=== PATIENT | male | born 1980 | race Caucasian/White ===

== ENCOUNTER 2016-06-05 14:28 | Emergency (ER) | payer SELFPAY ==
[~2016-06-05] VITALS: Ht 170.1 cm; Wt 65.8 kg
[~2016-06-05 14:28] MED LIST: ALBUTEROL0.09 MG/A2 IH; ALBUTEROL0.09 MG/AC IH; KEFLEX500 MG PO; MEDROL DOSEPAK4 MG PO; NKHM; PREDNICOT10 MG PO; PREDNICOT20 MG PO; PREDNISONE10 MG PO; PREDNISONE20 MG PO; ROBITUSSIN AC 110 ML PO; VIBRAMYCIN100 MG PO; ZITHROMAX Z PA250 MG PO; ZITHROMAX250 MG PO
[2016-06-05] MEDS ORDERED: CLINDAMYCIN150 MG PO (14:49)
[2016-06-05] MEDS ORDERED: Peridex 473 ML473 ML PO (14:49)
[2016-06-05] MEDS ORDERED: NAPROSYN500 MG PO (14:49)
== END 2016-06-05 14:51 | disposition home or self-care (01) ==
LOC: ED 14:28
DX: K02.9 Dental caries, unspecified (principal); R03.0 Elevated blood-pressure reading, without diagnosis of hypertension; J45.909 Unspecified asthma, uncomplicated; F17.200 Nicotine dependence, unspecified, uncomplicated; Z88.0 Allergy status to penicillin

== ENCOUNTER 2017-04-02 10:58 | Emergency (ER) | payer SELFPAY ==
[~2017-04-02] VITALS: Ht 170.1 cm; Wt 65.8 kg
[~2017-04-02 10:58] MED LIST changes: +CLINDAMYCIN150 MG PO; +NAPROSYN500 MG PO; +Peridex 473 ML473 ML PO
[2017-04-02] MEDS ORDERED: DUONEB 3 MG/3 ML3 M1 INH (11:23)
[2017-04-02] MEDS ORDERED: PREDNISONE10 MG PO (11:23)
[2017-04-02] MEDS ORDERED: CLARITIN10 MG PO (11:23)
[2017-04-02] MEDS ORDERED: ROBITUSSIN DM 105 ML PO (11:23)
== END 2017-04-02 12:34 | disposition home or self-care (01) ==
LOC: ED 10:58
DX: J45.901 Unspecified asthma with (acute) exacerbation (principal); R03.0 Elevated blood-pressure reading, without diagnosis of hypertension; F17.200 Nicotine dependence, unspecified, uncomplicated; Z88.0 Allergy status to penicillin

== ENCOUNTER 2017-05-14 09:31 | Emergency (ER) | payer SELFPAY ==
[~2017-05-14] VITALS: Ht 170.1 cm; Wt 65.8 kg
[~2017-05-14 09:31] MED LIST changes: +CLARITIN10 MG PO; +DUONEB 3 MG/3 ML3 M1 INH; +ROBITUSSIN DM 105 ML PO
[2017-05-14] MEDS ORDERED: PROVENTIL HFA6.7 GM INH (10:48)
[2017-05-14] MEDS ORDERED: PREDNISONE50 MG PO (10:48)
== END 2017-05-14 11:15 | disposition home or self-care (01) ==
LOC: ED 09:31
DX: J20.9 Acute bronchitis, unspecified (principal); J45.901 Unspecified asthma with (acute) exacerbation; F17.200 Nicotine dependence, unspecified, uncomplicated; F10.10 Alcohol abuse, uncomplicated; Z88.0 Allergy status to penicillin

== ENCOUNTER 2018-06-21 11:54 | Emergency (ER) | payer SELFPAY ==
[~2018-06-21] VITALS: Ht 170.1 cm; Wt 68.0 kg
[~2018-06-21 11:54] MED LIST changes: +PREDNISONE50 MG PO; +PROVENTIL HFA6.7 GM INH; +Zofran4 MG PO
[2018-06-21] MEDS ORDERED: VIBRAMYCIN100 MG PO (12:49)
[2018-06-21] MEDS ORDERED: PREDNISONE50 MG PO (12:49)
[2018-06-21] MEDS ORDERED: PROVENTIL HFA6.7 GM INH (12:49)
== END 2018-06-21 13:09 | disposition home or self-care (01) ==
LOC: ED 11:54
DX: J45.901 Unspecified asthma with (acute) exacerbation (principal); Z88.0 Allergy status to penicillin; Z87.891 Personal history of nicotine dependence

== ENCOUNTER 2018-06-27 18:52 | Emergency (ER) | payer SELFPAY ==
[~2018-06-27] VITALS: Ht 170.1 cm; Wt 65.8 kg
[2018-06-27] MEDS ORDERED: ANUSOL-HC25 MG R (19:15)
[2018-06-27] MEDS ORDERED: MIRALAX POWDER17 G1 PO (19:16)
== END 2018-06-27 19:09 | disposition home or self-care (01) ==
LOC: ED 18:52
DX: K64.4 Residual hemorrhoidal skin tags (principal); Z88.0 Allergy status to penicillin; Z79.2 Long term (current) use of antibiotics; Z79.899 Other long term (current) drug therapy

== ENCOUNTER 2018-11-23 11:21 | Emergency (ER) | payer MEDICAID ==
[~2018-11-23] VITALS: Ht 170.1 cm; Wt 65.8 kg
[~2018-11-23 11:21] MED LIST changes: +ANUSOL-HC25 MG R; +MIRALAX POWDER17 G1 PO
[2018-11-23] MEDS ORDERED: PREDNISONE50 MG PO (13:11)
[2018-11-23] MEDS ORDERED: PROAIR HFA8.5 GM INH (13:11)
== END 2018-11-23 13:22 | disposition home or self-care (01) ==
LOC: ED 11:21
DX: J45.901 Unspecified asthma with (acute) exacerbation (principal); F17.200 Nicotine dependence, unspecified, uncomplicated; Z88.0 Allergy status to penicillin; Z79.899 Other long term (current) drug therapy; Z79.2 Long term (current) use of antibiotics

== ENCOUNTER 2019-06-10 14:10 | Emergency (ER) | payer BC, OTHER ==
[~2019-06-10] VITALS: Ht 170.1 cm; Wt 68.0 kg
[~2019-06-10 14:10] MED LIST changes: +PROAIR HFA8.5 GM INH
[2019-06-10 14:14] VITALS: BP 134/82
[2019-06-10 15:16] LABS: BASO % 0.3 % (0.0-1.0); EOS # 0.1 10*3/uL (0.0-0.4); EOS % 1.9 % (1.0-4.0); HEMATOCRIT 40.8 % (42.0-52.0); HEMOGLOBIN 13.4 g/dl (14.0-18.0); LYMPH # 1.6 10*3/uL (1.3-4.4); LYMPH % 23.1 % (27.0-41.0); MEAN CELL VOLUME 93.4 fl (80.0-94.0); MEAN CORPUSCULAR HGB 30.7 pg (27.0-31.0); MEAN CORPUSCULAR HGB CONC 32.8 g/dl (33.0-37.0); MEAN PLATELET VOLUME 8.9 fl (9.6-12.3); MONO # 0.6 10*3/uL (0.1-1.0); MONO % 9.3 % (3.0-9.0); NEUT # 4.5 10*3/uL (2.3-7.9); NEUT % 65.3 % (47.0-73.0); PLATELET COUNT AUTOMATED 300 10*3/uL (130-400); RED BLOOD COUNT 4.37 10*6/uL (4.50-5.90); RED CELL DISTRI WIDTH 16.3 % (0-14.5); WHITE BLOOD COUNT 6.9 10*3/uL (4.8-10.8)
[2019-06-10 15:32] LABS: ALBUMIN 3.3 gm/dl (3.1-4.5); ALKALINE PHOSPHATASE 91 U/L (45-117); BUN 6 mg/dl (7-24); CHLORIDE 108 mmol/L (98-107); CREATININE 0.87 mg/dL (0.70-1.30); POTASSIUM 3.9 mmol/L (3.5-5.1); SGOT/AST 20 IU/L (3-35); SGPT/ALT 24 U/L (12-78); SODIUM 140 mmol/L (136-145); TOTAL PROTEIN 7.7 gm/dL (6.4-8.2)
--- NOTE | 2019-06-10 18:45 | NUR ---
NOTIFIED BRUNO FOSTER OF PATIENT NOT WANTING TO STAY UNLESS HE GETS TO GO OUTSIDE TO HAVE A CIGARETTE.
--- NOTE | 2019-06-10 19:00 | NUR ---
PATIENT REFUSES TO SIGN THE ADMIT PAPERS UNLESS HE GETS TO GO OUTSIDE AND SMOKE. PATIENT OFFERED A NICOTINE PATCH AND STATES THAT HE WANTS TO COME BACK IN THE MORNING. EXPLAINED TO PATIENT ABOUT IT BEING A NEW ER VISIT.
--- NOTE | 2019-06-10 19:25 | NUR ---
The patient, PEBBLES HOLLEY, 38, 78, [id number], [id number], presented to the Emergency Department at 1412. The patient's Chief Complaint was DENTAL PAIN. The patient subsequently left "Against Medical Advice" at 1926. Treatment completed included EXAM. LAB, RADIOLOGY, . Possible complications and consequences of not following medical advice were clearly explained to the patient by Dr. Briana BRAXTON , and [facility] RN. Assessment of the patient's competence, for making the decision to refuse completion of previously requested exam and treatment, includes alert and oriented. Attempts made to get patient involved in persuading the patient to accept, [facility], the physician's recommendations. Discussion included POSSIBLE CONSEQUENCES OF LEAVING MAKING THE MEDICAL ISSUE WORSE. The patient's response was I DONT CARE. . Family/friends who witnessed the discussion includes PATIENT AND [facility] RN . Signatures requested. The patient DID sign the chart; this was witnessed by [facility] RN. The patient's reason for departing, prior to completion of treatment was OTHER. The patient's disposition is dc against medical advice, to the care of SELF . Arrangements have been made for the ED staff to "Call Back" the patient the following day, to inquire about the patient's medical status and encourage PEBBLES HOLLEY, to seek medical attention, if this has not been completed. JARED MESSINA
--- NOTE | 2019-06-10 19:37 | NUR ---
PATIENTS IV REMOVED WITHOUT INCIDENT.
[2019-06-11] MEDS ORDERED: CLINDAMYCI600 MG/51 IV (11:45)
== END 2019-06-10 19:32 | disposition left against medical advice (07) ==
LOC: ED 14:10 → EDHOLD 18:33 → ED 19:32
PROVIDERS: Nurse Practitioner Family
DX: K04.7 Periapical abscess without sinus (principal); K02.9 Dental caries, unspecified; F17.200 Nicotine dependence, unspecified, uncomplicated; Z88.0 Allergy status to penicillin

== ENCOUNTER 2019-06-10 21:35 | Inpatient (IN) | payer BC, OTHER ==
[~2019-06-10] VITALS: Ht 170.1 cm; Wt 71.4 kg
[2019-06-10 21:45] VITALS: BP 147/94
[2019-06-10 23:15] VITALS: BP 138/80
[2019-06-11] VITALS: BP 133/80
[2019-06-11 06:08] LABS: BASO % 0.7 % (0.0-1.0); EOS # 0.2 10*3/uL (0.0-0.4); EOS % 3.1 % (1.0-4.0); HEMATOCRIT 39.4 % (42.0-52.0); HEMOGLOBIN 12.8 g/dl (14.0-18.0); LYMPH # 1.5 10*3/uL (1.3-4.4); LYMPH % 25.8 % (27.0-41.0); MEAN CELL VOLUME 91.8 fl (80.0-94.0); MEAN CORPUSCULAR HGB 29.8 pg (27.0-31.0); MEAN CORPUSCULAR HGB CONC 32.5 g/dl (33.0-37.0); MEAN PLATELET VOLUME 9.2 fl (9.6-12.3); MONO # 0.7 10*3/uL (0.1-1.0); MONO % 11.8 % (3.0-9.0); NEUT # 3.4 10*3/uL (2.3-7.9); NEUT % 58.4 % (47.0-73.0); PLATELET COUNT AUTOMATED 299 10*3/uL (130-400); RED BLOOD COUNT 4.29 10*6/uL (4.50-5.90); RED CELL DISTRI WIDTH 16.3 % (0-14.5); WHITE BLOOD COUNT 5.7 10*3/uL (4.8-10.8)
[2019-06-11 06:38] LABS: BUN 9 mg/dl (7-24); CHLORIDE 106 mmol/L (98-107); CHOLESTEROL 152 mg/dL (<200); CREATININE 0.76 mg/dL (0.70-1.30); PHOSPHOROUS 3.8 mg/dL (2.5-4.9); POTASSIUM 3.8 mmol/L (3.5-5.1); SODIUM 136 mmol/L (136-145); TRIGLYCERIDES 73 mg/dl (<150); VLDL CHOLESTEROL 15 mg/dL (6-40)
[2019-06-11 06:48] LABS: FREE T4 0.77 ng/dl (0.76-1.46); HDL CHOLESTEROL 83 mg/dl (40-60); LDL CHOLESTEROL 54 mg/dL (9-159)
[2019-06-11 07:00] LABS: INTERNATIONAL NORM RATIO 0.8 (2.0-3.5)
[2019-06-11 07:15] VITALS: BP 132/78
[2019-06-11 07:41] LABS: ACT PARTIAL THROMBO TIME > 139.0 SECONDS (20.0-32.1)
[2019-06-11] MEDS ORDERED: CLINDAMYCI600 MG/51 IV (11:45)
[2019-06-11 11:50] VITALS: BP 140/84
== END 2019-06-11 12:44 | disposition other institution (70) | DRG 158 ==
LOC: ED 21:35 → EDHOLD 22:14 → 4E 22:14
PROVIDERS: Internal Medicine; ADMIT Family Medicine
DX: K04.7 Periapical abscess without sinus (principal); E44.1 Mild protein-calorie malnutrition; F17.210 Nicotine dependence, cigarettes, uncomplicated; J45.909 Unspecified asthma, uncomplicated; D64.9 Anemia, unspecified; E87.8 Other disorders of electrolyte and fluid balance, not elsewhere classified; K02.9 Dental caries, unspecified; R79.1 Abnormal coagulation profile; Z80.8 Family history of malignant neoplasm of other organs or systems; Z68.24 Body mass index [BMI] 24.0-24.9, adult; Z83.6 Family history of other diseases of the respiratory system; Z71.6 Tobacco abuse counseling; Z88.0 Allergy status to penicillin

== ENCOUNTER 2019-06-23 14:03 | Emergency (ER) | payer BC, OTHER ==
[~2019-06-23] VITALS: Ht 170.1 cm; Wt 70.3 kg
[~2019-06-23 14:03] MED LIST changes: +CLINDAMYCI600 MG/51 IV
[2019-06-23 14:55] LABS: BASO % 0.4 % (0.0-1.0); EOS % 0.2 % (1.0-4.0); HEMATOCRIT 45.8 % (42.0-52.0); HEMOGLOBIN 15.2 g/dl (14.0-18.0); LYMPH # 1.1 10*3/uL (1.3-4.4); LYMPH % 13.4 % (27.0-41.0); MEAN CELL VOLUME 91.1 fl (80.0-94.0); MEAN CORPUSCULAR HGB 30.2 pg (27.0-31.0); MEAN CORPUSCULAR HGB CONC 33.2 g/dl (33.0-37.0); MONO # 0.5 10*3/uL (0.1-1.0); MONO % 5.9 % (3.0-9.0); NEUT # 6.5 10*3/uL (2.3-7.9); NEUT % 79.7 % (47.0-73.0); PLATELET COUNT AUTOMATED 405 10*3/uL (130-400); RED BLOOD COUNT 5.03 10*6/uL (4.50-5.90); RED CELL DISTRI WIDTH 16.3 % (0-14.5); WHITE BLOOD COUNT 8.2 10*3/uL (4.8-10.8)
[2019-06-23 15:09] LABS: ALBUMIN 4.2 gm/dl (3.1-4.5); ALKALINE PHOSPHATASE 81 U/L (45-117); BUN 11 mg/dl (7-24); CHLORIDE 104 mmol/L (98-107); CREATININE 0.92 mg/dL (0.70-1.30); LIPASE 116 U/L (73-393); POTASSIUM 4.2 mmol/L (3.5-5.1); SGOT/AST 37 IU/L (3-35); SGPT/ALT 37 U/L (12-78); SODIUM 137 mmol/L (136-145); TOTAL PROTEIN 8.7 gm/dL (6.4-8.2)
[2019-06-23 15:51] LABS: CLARITY SL CLOUDY (CLEAR); COLOR YELLOW (YELLOW)
[2019-06-23 15:54] LABS: BILIRUBIN 1+ (NEGATIVE); GLUCOSE NEGATIVE (NEGATIVE); KETONE 1+ (NEGATIVE)
[2019-06-23 15:55] LABS: BLOOD TRACE-INTACT (NEGATIVE); LEUKO ESTERASE NEGATIVE (NEGATIVE); NITRITE NEGATIVE (NEGATIVE); RBC 0-2 rbc/hpf (0-2); SPECIFIC GRAVITY 1.025 (1.005-1.030); UROBILINOGEN 0.2 E.U./dl (0.2-1.0); WBC 0-2 wbc/hpf (0-5)
[2019-06-23 15:56] LABS: BACTERIA 1+; MUCOUS 4+
[2019-06-23] MEDS ORDERED: ZOFRAN4 MG PO (16:38)
[2019-06-23 17:53] LABS: URINE AMPHETAMINES < 1000 (1000ng/ml); URINE BARBITURATES < 200 (200ng/ml); URINE BENZODIAZEPINES < 200 (200ng/ml); URINE CANNABINOIDS (THC) > 50 (50ng/ml); URINE COCAINE < 300 (300ng/ml); URINE METHADONE < 300 (300ng/ml); URINE OPIATES < 300 (300ng/ml)
[2019-06-23 17:56] LABS: URINE PHENCYCLIDINE < 25 (25ng/ml)
[2019-06-23] MEDS ORDERED: DICYCLOMINE HCL10 MG PO (19:42)
== END 2019-06-23 20:16 | disposition home or self-care (01) ==
LOC: ED 14:03
PROVIDERS: Physician Assistant
DX: R10.84 Generalized abdominal pain (principal); R11.10 Vomiting, unspecified; J45.909 Unspecified asthma, uncomplicated; F17.200 Nicotine dependence, unspecified, uncomplicated; Z88.0 Allergy status to penicillin

== ENCOUNTER 2019-10-15 12:56 | Emergency (ER) | payer BC, OTHER ==
[~2019-10-15] VITALS: Ht 170.1 cm; Wt 65.8 kg
[~2019-10-15 12:56] MED LIST changes: +DICYCLOMINE HCL10 MG PO; +ZOFRAN4 MG PO
[2019-10-15] MEDS ORDERED: NORCO 5-325 TA1 EACH PO (19:36)
== END 2019-10-15 20:00 | disposition home or self-care (01) ==
LOC: ED 12:56
DX: S42.102A Fracture of unspecified part of scapula, left shoulder, initial encounter for closed fracture (principal); S22.32XA Fracture of one rib, left side, initial encounter for closed fracture; F17.200 Nicotine dependence, unspecified, uncomplicated; Z79.899 Other long term (current) drug therapy; Z88.0 Allergy status to penicillin; W10.9XXA Fall (on) (from) unspecified stairs and steps, initial encounter; Y93.89 Activity, other specified; Y92.89 Other specified places as the place of occurrence of the external cause; Y99.8 Other external cause status; J45.909 Unspecified asthma, uncomplicated

== ENCOUNTER 2020-01-20 22:24 | Emergency (ER) | payer BC, OTHER ==
[~2020-01-20] VITALS: Ht 170.1 cm; Wt 65.8 kg
[~2020-01-20 22:24] MED LIST changes: +NORCO 5-325 TA1 EACH PO
[2020-01-21 01:39] LABS: BILIRUBIN NEGATIVE; BLOOD NEGATIVE (NEGATIVE); CLARITY CLEAR (CLEAR); COLOR YELLOW (YELLOW); GLUCOSE NEGATIVE; KETONE NEGATIVE; LEUKO ESTERASE NEGATIVE (NEGATIVE); NITRITE NEGATIVE (NEGATIVE); SPECIFIC GRAVITY 1.025 (1.001-1.030)
[2020-01-21 01:41] LABS: RBC 0-2 rbc/hpf (0-2); WBC 0-2 wbc/hpf (0-5)
== END 2020-01-21 02:35 | disposition home or self-care (01) ==
LOC: ED 22:24
PROVIDERS: Emergency Medicine
DX: S20.211A Contusion of right front wall of thorax, initial encounter (principal); F17.200 Nicotine dependence, unspecified, uncomplicated; W01.0XXA Fall on same level from slipping, tripping and stumbling without subsequent striking against object, initial encounter; Y93.89 Activity, other specified; Y92.89 Other specified places as the place of occurrence of the external cause; Y99.8 Other external cause status

== ENCOUNTER 2020-03-02 23:06 | Emergency (ER) | payer BC, OTHER ==
[~2020-03-02] VITALS: Ht 170.1 cm; Wt 68.0 kg
== END 2020-03-03 00:24 | disposition left against medical advice (07) ==
LOC: ED 23:06
DX: J45.901 Unspecified asthma with (acute) exacerbation (principal); Z79.899 Other long term (current) drug therapy

== ENCOUNTER → 2020-03-02 | Emergency (ER) | payer BC, OTHER ==
[~2020-03-02] VITALS: Wt 68.0 kg
== END ==
LOC: ED 19:20
DX: J45.909 Unspecified asthma, uncomplicated (principal); Z53.21 Procedure and treatment not carried out due to patient leaving prior to being seen by health care provider

== ENCOUNTER → 2020-04-19 | Outpatient (CLI) | payer BC | END | disposition home or self-care (01) | LOC: RAD 11:32 | PROVIDERS: ATTEND Nurse Practitioner Family | DX: J45.40 Moderate persistent asthma, uncomplicated (principal) ==

== ENCOUNTER 2021-04-02 18:20 | Emergency (ER) | payer BC ==
[~2021-04-02] VITALS: Ht 170.1 cm; Wt 68.0 kg
[2021-04-02] MEDS ORDERED: PROVENTIL HFA6.7 GM INH (18:39)
== END 2021-04-02 20:58 | disposition home or self-care (01) ==
LOC: ED 18:20
DX: J45.901 Unspecified asthma with (acute) exacerbation (principal); Z88.0 Allergy status to penicillin; F17.200 Nicotine dependence, unspecified, uncomplicated

== ENCOUNTER 2021-04-16 17:29 | Emergency (ER) | payer BC ==
[~2021-04-16] VITALS: Ht 170.1 cm; Wt 68.0 kg
== END 2021-04-16 21:57 | disposition home or self-care (01) ==
LOC: ED 17:29
DX: J45.901 Unspecified asthma with (acute) exacerbation (principal); F17.200 Nicotine dependence, unspecified, uncomplicated; Z88.0 Allergy status to penicillin

== ENCOUNTER 2021-09-09 16:49 | Emergency (ER) | payer BC ==
[~2021-09-09] VITALS: Ht 170.1 cm; Wt 68.0 kg
[2021-09-09] MEDS ORDERED: NAPROXEN250 MG PO (18:07)
[2021-09-09] MEDS ORDERED: VOLTAREN ARTHRI20 GM T (18:07)
[2021-09-09] MEDS ORDERED: HYDROCODONE-AC1 EAC1 PO (18:07)
[2021-09-09] MEDS ORDERED: PROVENTIL HFA6.7 GM INH (18:08)
== END 2021-09-09 19:21 | disposition home or self-care (01) ==
LOC: ED 16:49
DX: S22.32XA Fracture of one rib, left side, initial encounter for closed fracture (principal); J45.909 Unspecified asthma, uncomplicated; Z88.0 Allergy status to penicillin; Z87.891 Personal history of nicotine dependence; W10.8XXA Fall (on) (from) other stairs and steps, initial encounter; Y93.89 Activity, other specified; Y92.89 Other specified places as the place of occurrence of the external cause; Y99.8 Other external cause status

== ENCOUNTER 2022-04-19 15:50 | Emergency (ER) | payer BC ==
[~2022-04-19] VITALS: Ht 170.1 cm; Wt 68.0 kg
[~2022-04-19 15:50] MED LIST changes: +HYDROCODONE-AC1 EAC1 PO; +NAPROXEN250 MG PO; +VOLTAREN ARTHRI20 GM T
== END 2022-04-19 16:40 | disposition home or self-care (01) ==
LOC: ED 15:50
DX: J45.909 Unspecified asthma, uncomplicated (principal); F17.200 Nicotine dependence, unspecified, uncomplicated; Z88.0 Allergy status to penicillin

== ENCOUNTER 2022-06-02 05:04 | Emergency (ER) | payer BC ==
[~2022-06-02] VITALS: Ht 170.1 cm; Wt 74.4 kg
[2022-06-02] MEDS ORDERED: VIBRA-TAB100 MG PO (05:19)
[2022-06-03] MEDS ORDERED: CLINDAMYCIN HC300 MG PO (21:00)
[2022-06-03] MEDS ORDERED: PERIDEX118 ML MM (21:03)
== END 2022-06-02 05:28 | disposition home or self-care (01) ==
LOC: ED 05:04
DX: J01.00 Acute maxillary sinusitis, unspecified (principal); Z88.0 Allergy status to penicillin; F17.200 Nicotine dependence, unspecified, uncomplicated; F10.90 Alcohol use, unspecified, uncomplicated

== ENCOUNTER 2022-06-03 16:52 | Emergency (ER) | payer BC ==
[~2022-06-03] VITALS: Ht 170.1 cm; Wt 68.0 kg
[~2022-06-03 16:52] MED LIST changes: +VIBRA-TAB100 MG PO
[2022-06-03] MEDS ORDERED: CLINDAMYCIN HC300 MG PO (21:00)
[2022-06-03] MEDS ORDERED: PERIDEX118 ML MM (21:03)
== END 2022-06-03 21:10 | disposition home or self-care (01) ==
LOC: ED 16:52
DX: K02.9 Dental caries, unspecified (principal); Z88.0 Allergy status to penicillin; F17.200 Nicotine dependence, unspecified, uncomplicated; F10.20 Alcohol dependence, uncomplicated

== ENCOUNTER 2022-11-05 08:52 | Emergency (ER) | payer BC ==
[~2022-11-05 08:52] MED LIST changes: +CLINDAMYCIN HC300 MG PO; +PERIDEX118 ML MM
[2022-11-05] MEDS ORDERED: PREDNISONE20 M1 PO (10:11)
== END 2022-11-05 10:18 | disposition home or self-care (01) ==
LOC: ED 08:52
DX: J45.909 Unspecified asthma, uncomplicated (principal); Z88.0 Allergy status to penicillin; Z88.8 Allergy status to other drugs, medicaments and biological substances; F17.200 Nicotine dependence, unspecified, uncomplicated

== ENCOUNTER 2023-12-17 17:47 | Emergency (ER) | payer BC ==
[~2023-12-17] VITALS: Ht 170.1 cm; Wt 70.3 kg
[~2023-12-17 17:47] MED LIST changes: +OMEPRAZOLE40 MG PO; +PREDNISONE20 M1 PO
[2023-12-17] MEDS ORDERED: Albuterol Sulf/Ipratropium 3 ML VIAL NEB ONE ×2 (20:35→22:00)
[2023-12-17] MEDS ORDERED: methylPREDNISolone sod succ 125 MG VIAL IM ONE (20:35)
[2023-12-17] MEDS ORDERED: ALBUTEROL 8 GM INHALER INH ONE (22:05)
[2023-12-17] MEDS ORDERED: PREDNISONE20 M1 PO (22:46)
== END 2023-12-17 22:57 | disposition home or self-care (01) ==
LOC: ED 17:47
DX: J45.909 Unspecified asthma, uncomplicated (principal); R07.81 Pleurodynia; F17.200 Nicotine dependence, unspecified, uncomplicated; Z88.0 Allergy status to penicillin; Z79.899 Other long term (current) drug therapy

== ENCOUNTER 2024-01-19 02:08 | Emergency (ER) | payer BC ==
[~2024-01-19] VITALS: Ht 172.7 cm; Wt 68.0 kg
[2024-01-19] MEDS ORDERED: Albuterol Sulf/Ipratropium 3 ML VIAL NEB ONE ×2 (02:50→03:04)
[2024-01-19] MEDS ORDERED: methylPREDNISolone sod succ 125 MG VIAL IM ONE (02:50)
[2024-01-19] MEDS ORDERED: ZITHROMAX250 MG PO (03:35)
[2024-01-19] MEDS ORDERED: PREDNISONE20 M1 PO (03:35)
[2024-01-19] MEDS ORDERED: ALBUTEROL 8 GM INHALER INH ONE (03:40)
== END 2024-01-19 04:00 | disposition home or self-care (01) ==
LOC: ED 02:08
DX: J45.901 Unspecified asthma with (acute) exacerbation (principal); F17.200 Nicotine dependence, unspecified, uncomplicated; Z88.0 Allergy status to penicillin

== ENCOUNTER 2024-01-23 21:35 | Emergency (ER) | payer BC ==
[~2024-01-23] VITALS: Ht 170.1 cm; Wt 77.3 kg
== END 2024-01-24 02:01 | disposition short-term general hospital (02) ==
LOC: ED 21:35
DX: T18.108A Unspecified foreign body in esophagus causing other injury, initial encounter (principal); E87.1 Hypo-osmolality and hyponatremia; J45.909 Unspecified asthma, uncomplicated; F17.200 Nicotine dependence, unspecified, uncomplicated; Z88.0 Allergy status to penicillin; W44.9XXA Unspecified foreign body entering into or through a natural orifice, initial encounter; Y93.89 Activity, other specified; Y92.89 Other specified places as the place of occurrence of the external cause; Y99.8 Other external cause status

== ENCOUNTER 2024-02-03 14:11 | Emergency (ER) | payer OTHER, BC ==
[~2024-02-03] VITALS: Ht 170.1 cm; Wt 81.2 kg
[2024-02-03 14:36] LABS: BASO % 0.2 % (0.0-1.0); HEMATOCRIT 37.8 % (42.0-52.0); LYMPH # 0.7 10*3/uL (1.3-4.4); LYMPH % 17.5 % (27.0-41.0); MEAN CELL VOLUME 91.1 fl (80.0-94.0); MEAN CORPUSCULAR HGB 30.6 pg (27.0-31.0); MEAN CORPUSCULAR HGB CONC 33.6 g/dl (33.0-37.0); MEAN PLATELET VOLUME 9.5 fl (9.6-12.3); MONO # 0.3 10*3/uL (0.1-1.0); MONO % 8.1 % (3.0-9.0); NEUT # 3.1 10*3/uL (2.3-7.9); PLATELET COUNT AUTOMATED 153 10*3/uL (130-400); RED BLOOD COUNT 4.15 10*6/uL (4.50-5.90); RED CELL DISTRI WIDTH 16.5 % (0-14.5); WHITE BLOOD COUNT 4.2 10*3/uL (4.8-10.8)
[2024-02-03 14:52] LABS: BUN 9 mg/dl (9-23); CHLORIDE 97 mmol/L (98-107); POTASSIUM 3.2 mmol/L (3.4-5.1)
[2024-02-03 14:53] LABS: ETHYL ALCOHOL < 3.0 mg/dl (<3)
[2024-02-03] MEDS ORDERED: POTASSIUM CHLORIDE 20 MEQ TAB PO ONE (16:10)
[2024-02-03] MEDS ORDERED: SODIUM CHLORIDE 0.9% 1,000 ML IV ONE (16:10)
[2024-02-03] MEDS ORDERED: MAGNESIUM OXIDE 400 MG TAB PO ONE (16:15)
[2024-02-03 18:12] LABS: URINE AMPHETAMINES Negative (1000ng/ml); URINE BARBITURATES Negative (200ng/ml); URINE BENZODIAZEPINES Negative (200ng/ml); URINE CANNABINOIDS (THC) Negative (50ng/ml); URINE COCAINE Negative (300ng/ml); URINE METHADONE Negative (300ng/ml); URINE OPIATES Negative (300ng/ml); URINE PHENCYCLIDINE Negative (25ng/ml)
[2024-02-03] MEDS ORDERED: VENT7GM INH (18:31)
[2024-02-04] MEDS ORDERED: KEPPRA500 MG PO (01:40)
[2024-02-05] MEDS ORDERED: PRILOSEC20 M1 PO (11:35)
[2024-02-08] MEDS ORDERED: DOXYCYCLINE MO100 MG PO (11:24)
[2024-02-08] MEDS ORDERED: LEVETIRACETAM500 MG PO (11:24)
[2024-02-08] MEDS ORDERED: VITAMIN D350 MCG PO (11:24)
[2024-02-08] MEDS ORDERED: PREDNISONE10 MG PO (11:25)
== END 2024-02-03 18:28 | disposition home or self-care (01) ==
LOC: ED 14:11
PROVIDERS: Internal Medicine
DX: S01.01XA Laceration without foreign body of scalp, initial encounter (principal); E87.1 Hypo-osmolality and hyponatremia; R55 Syncope and collapse; R53.1 Weakness; E87.6 Hypokalemia; E83.42 Hypomagnesemia; J45.909 Unspecified asthma, uncomplicated; F17.200 Nicotine dependence, unspecified, uncomplicated; Z88.0 Allergy status to penicillin; Z88.8 Allergy status to other drugs, medicaments and biological substances; Z79.899 Other long term (current) drug therapy; W19.XXXA Unspecified fall, initial encounter; Y93.89 Activity, other specified; Y92.89 Other specified places as the place of occurrence of the external cause; Y99.0 Civilian activity done for income or pay

== ENCOUNTER 2024-02-03 19:55 | Emergency (ER) | payer BC ==
[~2024-02-03] VITALS: Ht 175.2 cm; Wt 77.1 kg
[~2024-02-03 19:55] MED LIST changes: +VENT7GM INH
[2024-02-03] MEDS ORDERED: ACETAMINOPHEN 325 MG TAB PO ONE (21:20)
[2024-02-03 21:25] LABS: BASO % 0.1 % (0.0-1.0); EOS % 0.1 % (1.0-4.0); HEMATOCRIT 38.1 % (42.0-52.0); LYMPH # 0.5 10*3/uL (1.3-4.4); LYMPH % 7.2 % (27.0-41.0); MEAN CELL VOLUME 93.2 fl (80.0-94.0); MEAN CORPUSCULAR HGB 30.1 pg (27.0-31.0); MEAN CORPUSCULAR HGB CONC 32.3 g/dl (33.0-37.0); MEAN PLATELET VOLUME 9.4 fl (9.6-12.3); MONO # 0.4 10*3/uL (0.1-1.0); MONO % 4.8 % (3.0-9.0); NEUT # 6.5 10*3/uL (2.3-7.9); NEUT % 87.4 % (47.0-73.0); PLATELET COUNT AUTOMATED 145 10*3/uL (130-400); RED BLOOD COUNT 4.09 10*6/uL (4.50-5.90); RED CELL DISTRI WIDTH 16.4 % (0-14.5); WHITE BLOOD COUNT 7.5 10*3/uL (4.8-10.8)
[2024-02-03 21:42] LABS: BILIRUBIN Negative (Negative); BLOOD 2+ (Negative); CLARITY Clear (Clear); COLOR Yellow (Yellow); GLUCOSE Negative (Negative); KETONE 2+ (Negative); LEUKO ESTERASE Negative (Negative); NITRITE Negative (Negative); PH 5.5 (4.5-8.0)
[2024-02-03 21:46] LABS: ALKALINE PHOSPHATASE 71 U/L (46-116); BUN 9 mg/dl (9-23); CHLORIDE 100 mmol/L (98-107); CPK 468 U/L (34-171); POTASSIUM 3.2 mmol/L (3.4-5.1); SGPT/ALT 51 U/L (5-49); TOTAL PROTEIN 7.6 gm/dL (6.0-8.0)
[2024-02-03 21:55] LABS: URINE AMPHETAMINES Negative (1000ng/ml); URINE BARBITURATES Negative (200ng/ml); URINE BENZODIAZEPINES Negative (200ng/ml); URINE CANNABINOIDS (THC) Negative (50ng/ml); URINE COCAINE Negative (300ng/ml); URINE METHADONE Negative (300ng/ml); URINE OPIATES Negative (300ng/ml); URINE PHENCYCLIDINE Negative (25ng/ml)
[2024-02-03 21:56] LABS: BACTERIA 1+
[2024-02-03 22:05] LABS: ACT PARTIAL THROMBO TIME > 139.0 SECONDS (20.0-32.1)
[2024-02-03] MEDS ORDERED: SODIUM CHLORIDE IV ONE (22:55)
[2024-02-03] MEDS ORDERED: LEVETIRACETAM IV ONE (22:55)
[2024-02-03] MEDS ORDERED: LEVETIRACETAM IN NACL (ISO-OS) 100 ML IV ONE (23:45)
[2024-02-04] MEDS ORDERED: KEPPRA500 MG PO (01:40)
[2024-02-04] MEDS ORDERED: POTASSIUM CHLORIDE 20 MEQ TAB PO ONE (01:45)
[2024-02-05] MEDS ORDERED: PRILOSEC20 M1 PO (11:35)
== END 2024-02-04 02:23 | disposition left against medical advice (07) ==
LOC: ED 19:55
PROVIDERS: Emergency Medicine
DX: R56.9 Unspecified convulsions (principal); J45.909 Unspecified asthma, uncomplicated; E87.6 Hypokalemia; E83.42 Hypomagnesemia; E87.1 Hypo-osmolality and hyponatremia; R10.2 Pelvic and perineal pain; R74.8 Abnormal levels of other serum enzymes; F17.200 Nicotine dependence, unspecified, uncomplicated; Z88.8 Allergy status to other drugs, medicaments and biological substances; Z88.0 Allergy status to penicillin; Z79.899 Other long term (current) drug therapy

== ENCOUNTER 2024-02-17 00:52 | Emergency (ER) | payer BC ==
[~2024-02-17] VITALS: Ht 170.1 cm; Wt 79.4 kg
[~2024-02-17 00:52] MED LIST changes: +DOXYCYCLINE MO100 MG PO; +KEPPRA500 MG PO; +LEVETIRACETAM500 MG PO; +PRILOSEC20 M1 PO; +VITAMIN D350 MCG PO
[2024-02-17] MEDS ORDERED: ALBUTEROL 8 GM INHALER INH ONE (02:00)
== END 2024-02-17 02:15 | disposition home or self-care (01) ==
LOC: ED 00:52
DX: J45.909 Unspecified asthma, uncomplicated (principal); Z76.0 Encounter for issue of repeat prescription; E87.6 Hypokalemia; E87.1 Hypo-osmolality and hyponatremia; E83.42 Hypomagnesemia; F17.210 Nicotine dependence, cigarettes, uncomplicated; Z88.0 Allergy status to penicillin

== ENCOUNTER → 2025-01-18 | Outpatient (CLI) | payer OTHER, BC | END | disposition home or self-care (01) | LOC: RAD 11:29 | PROVIDERS: ATTEND Family Medicine | DX: S42.031A Displaced fracture of lateral end of right clavicle, initial encounter for closed fracture (principal); M25.511 Pain in right shoulder; X58.XXXA Exposure to other specified factors, initial encounter; Y93.89 Activity, other specified; Y92.89 Other specified places as the place of occurrence of the external cause; Y99.8 Other external cause status ==